=== PATIENT | male | born 1995 | race Caucasian/White ===

== ENCOUNTER 2019-02-07 23:08 | Inpatient (IN) | payer OTHER ==
[~2019-02-07] VITALS: Ht 177.8 cm; Wt 104.1 kg
[2019-02-07] MEDS ORDERED: PLEASE ENTER ALLERGIES MC SCH (23:45)
[2019-02-08] MEDS ORDERED: VANCOMYCIN PER PHARMACY MC ONE
[2019-02-08] MEDS ORDERED: METRONIDAZOLE PMX 500MG/100ML 100 ML IV ONE
[2019-02-08] MEDS ORDERED: SODIUM CHLORIDE 0.9% 1,000ML IVBOLUS ONE
[2019-02-08] MEDS ORDERED: CIPROFLOXACIN/PMX 400MG/200ML 200 ML IV ONE
[2019-02-08 00:03] LABS: BASOPHILS # (AUTO) 0.01 x10^3/uL (0-0.1); BASOPHILS % (AUTO) 0 % (0-1); EOSINOPHILS # (AUTO) 0.05 x10^3/uL (0-0.4); EOSINOPHILS % (AUTO) 1 % (1-7); LYMPHOCYTES # (AUTO) 1.17 x10^3/uL (1-3.4); LYMPHOCYTES % (AUTO) 17 % (22-44); MD NO; MEAN CORPUSCULAR HEMOGLOBIN 31.7 pg (27.5-34.5); MEAN CORPUSCULAR VOLUME 96.1 fL (81-97); MEAN PLATELET VOLUME 7.4 fL (7.4-10.4); MONOCYTES # (AUTO) 0.39 x10^3/uL (0.2-0.8); MONOCYTES % (AUTO) 6 % (2-9); NEUTROPHILS # (AUTO) 5.47 x10^3/uL (1.8-6.8); NEUTROPHILS % (AUTO) 77 % (42-75); PLATELET COUNT 119 x10^3/uL (130-400); RED BLOOD COUNT 4.86 x10^6/uL (4.38-5.82); RED CELL DISTRIBUTION WIDTH 15.8 % (9.4-14.8)
[2019-02-08 00:17] LABS: ANION GAP 11 mmol/L (5-15); CALCIUM 7.2 mg/dL (8.5-10.1); CHLORIDE 110 mmol/L (98-107); CREATININE 3.39 mg/dL (0.7-1.3); INTERNATIONAL NORMALIZED RATIO 1.26 (0.93-1.1); PROTHROMBIN TIME 13.1 Seconds (9.6-11.5)
[2019-02-08 00:21] LABS: ALKALINE PHOSPHATASE 88 U/L (45-117); TOTAL PROTEIN 6.5 g/dL (6.4-8.2)
[2019-02-08 00:26] LABS: ALANINE AMINOTRANSFERASE 2137 U/L (12-78)
[2019-02-08] MEDS ORDERED: CIPROFLOXACIN/PMX 400MG/200ML 200 ML ONE (00:34)
--- NOTE | 2019-02-08 00:54 | NUR ---
PT PRESENTED TO [facility] WITH C/O VOMITTING, DIARRHEA, GENERALIZED BODY ACHES, COUGH X 24 HOURS. PT BOUGHT MARIJUANA LAST NIGHT AND SMOKED IT AND IMMEDIATEDLY FELT WORSE. PT WAS GIVEN NARCAN AT [facility] DUE TO PINPOINT PUPILS AND ABNORMAL VITALS. PT RESPONDED TO [facility] WITH DILATION OF PUPILS AND INCREASED BP AND RESPONSIVENESS. PT DENIES ANY OPOID USE. DIAGNOSED AT [facility] WITH HYPOTENSION (LOWEST BP AT [facility] WAS NOTED TO BE 74/45), HYPERKALEMIA (7.1), LACTIC ACIDOSIS (6.8), RENAL INSUFFICIENCY, HYPOXEMIA (LOWEST READING NOTED TO BE 75% ON RA AT [facility]), ELEVATED LIVER ENZYMES, N/V/D. PT WAS TREATED AT [facility] WITH 2L NS BOLUS, NARCAN 1MG X 2 INJECTIONS, DEXTROSE, INSULIN, CA GLUCONATE 1000MG.
[2019-02-08] MEDS ORDERED: SODIUM CHLORIDE 0.9% 1,000 ML IV ONE (00:59)
[2019-02-08 01:00] LABS: BILIRUBIN, DIRECT 0.4 mg/dL (0.1-0.2)
[2019-02-08] MEDS ORDERED: ONDANSETRON 2MG/ML, 2ML IVPush PRN ×2 (01:00→03:30)
[2019-02-08] MEDS ORDERED: VANCOMYCIN 1,800 MG in SODIUM CHLORIDE 0.9% 250 ML IV ONE (01:00)
[2019-02-08 01:03] LABS: SALICYLATE LEVEL < 1.7 mg/dL (2.8-20.0)
[2019-02-08 01:10] LABS: BILIRUBIN,INDIRECT 0.6 mg/dL (0.0-2.0)
[2019-02-08 01:11] LABS: TOTAL PROTEIN 6.5 g/dL (6.4-8.2)
[2019-02-08] MEDS ORDERED: Zyprexa (01:24)
[2019-02-08] MEDS ORDERED: paxil ×2 (01:25→01:26)
[2019-02-08] MEDS ORDERED: zyprexa (01:26)
[2019-02-08] MEDS ORDERED: ONDA4TAB7 PO (01:26)
[2019-02-08] MEDS ORDERED: FAMO-79 PO ×2 (01:27→03:42)
[2019-02-08] MEDS ORDERED: LACTATED RINGERS 1,000 ML IVBOLUS ONE (01:30)
--- NOTE | 2019-02-08 01:38 | NUR ---
BREAK RN: MAINTINENCE IVF STARTED AT 125ML/HR. CALL LIGHT IN REACH, NEEDS ADDRESSED.
--- NOTE | 2019-02-08 01:56 | NUR ---
REPORT GIVEN TO LEVI HERNANDEZ. MARY TO ASSUME CARE AT THIS TIME.
--- NOTE | 2019-02-08 02:07 | NUR ---
report to pamela rn
[2019-02-08 03:28] VITALS: BP 101/66
[2019-02-08] MEDS ORDERED: PROMETHAZINE 25 MG/ML, 1ML IM PRN (03:30)
[2019-02-08] MEDS ORDERED: morphine SULFATE 10 MG/ML, 1ML IVPush PRN (03:30)
[2019-02-08] MEDS ORDERED: PARO30TA45 PO (03:40)
[2019-02-08] MEDS ORDERED: OLAN2.5T3 PO (03:41)
[2019-02-08 04:09] LABS: ALBUMIN 3.1 g/dL (3.4-5.0); ANION GAP 9 mmol/L (5-15); CALCIUM 7.3 mg/dL (8.5-10.1); CHLORIDE 111 mmol/L (98-107)
[2019-02-08 04:15] LABS: ALKALINE PHOSPHATASE 82 U/L (45-117); CREATININE 2.74 mg/dL (0.7-1.3); TOTAL PROTEIN 6.5 g/dL (6.4-8.2)
[2019-02-08 04:19] LABS: BASOPHILS # (AUTO) 0.02 x10^3/uL (0-0.1); BASOPHILS % (AUTO) 0 % (0-1); EOSINOPHILS % (AUTO) 0 % (1-7); LYMPHOCYTES # (AUTO) 1.46 x10^3/uL (1-3.4); LYMPHOCYTES % (AUTO) 18 % (22-44); MD NO; MEAN CORPUSCULAR HEMOGLOBIN 31.5 pg (27.5-34.5); MEAN CORPUSCULAR HGB CONC 32.9 g/dL (33.2-36.2); MEAN CORPUSCULAR VOLUME 95.8 fL (81-97); MEAN PLATELET VOLUME 7.7 fL (7.4-10.4); MONOCYTES # (AUTO) 0.43 x10^3/uL (0.2-0.8); MONOCYTES % (AUTO) 5 % (2-9); NEUTROPHILS # (AUTO) 6.07 x10^3/uL (1.8-6.8); NEUTROPHILS % (AUTO) 76 % (42-75); PLATELET COUNT 129 x10^3/uL (130-400); RED BLOOD COUNT 4.74 x10^6/uL (4.38-5.82); RED CELL DISTRIBUTION WIDTH 15.6 % (9.4-14.8)
[2019-02-08 04:24] LABS: ALANINE AMINOTRANSFERASE 2784 U/L (12-78)
[2019-02-08 04:37] LABS: CREATINE KINASE, TOTAL 3606 U/L (39-308)
[2019-02-08 04:43] LABS: MICROSCOPIC INDICATED
[2019-02-08 04:50] LABS: AMPHETAMINE SCREEN, URINE Negative (Negative); BARBITURATE SCREEN, URINE Negative (Negative); BENZODIAZEPINE SCREEN, URINE Positive (Negative); CANNABINOID SCREEN, URINE Negative (Negative); CHLORIDE,URINE RANDOM 78 mmol/L; COCAINE SCREEN, URINE Negative (Negative); METHADONE SCREEN, URINE Negative (Negative); OPIATE SCREEN, URINE Positive (Negative); POTASSIUM,URINE RANDOM 73 mmol/L; SODIUM,URINE RANDOM 41 mmol/L
[2019-02-08 04:54] LABS: CULTURE INDICATED? NO
[2019-02-08] MEDS ORDERED: ACETYLCYSTEINE 15,000 MG in DEXTROSE 5% 200 ML IV ONE (05:00)
[2019-02-08] MEDS: SODIUM CHLORIDE 0.9% 1,000 ML IV SCH ×4 (05:04→20:45)
[2019-02-08] MEDS: METRONIDAZOLE PMX 500MG/100ML 100 ML IV SCH ×2 (05:04→12:03)
[2019-02-08] MEDS ORDERED: CALCIUM GLUCONATE 9.2 MEQ in SODIUM CHLORIDE 0.9% 100 ML IV ONE (06:00)
[2019-02-08] MEDS ORDERED: ACETYLCYSTEINE 5,000 MG in DEXTROSE 5% 500 ML IV ONE (06:00)
[2019-02-08] MEDS ORDERED: AZTREONAM 2 GM in DEXTROSE 5% 100 ML IV SCH (09:00)
[2019-02-08 09:26] LABS: OCCULT BLOOD NEGATIVE (NEGATIVE)
[2019-02-08 09:48] LABS: STOOL FOR LEUKOCYTES NONE SEEN (NEGATIVE)
[2019-02-08] MEDS ORDERED: ACETYLCYSTEINE 10,000 MG in DEXTROSE 5% 1,000 ML IV ONE (10:00)
[2019-02-08 10:38] VITALS: BP 129/89
[2019-02-08 13:03] LABS: CREATINE KINASE, TOTAL 6416 U/L (39-308)
[2019-02-08] MEDS: ACETYLCYSTEINE 10,000 MG in DEXTROSE 5% 1,000 ML IV SCH (13:48)
[2019-02-08 15:20] LABS: ALBUMIN 2.7 g/dL (3.4-5.0); ANION GAP 8 mmol/L (5-15); CALCIUM 7.9 mg/dL (8.5-10.1); CHLORIDE 108 mmol/L (98-107)
[2019-02-08 15:24] LABS: ALKALINE PHOSPHATASE 68 U/L (45-117); BILIRUBIN,TOTAL 1.1 mg/dL (0.2-1.0); TOTAL PROTEIN 6.1 g/dL (6.4-8.2)
[2019-02-08 15:30] LABS: ALANINE AMINOTRANSFERASE 2512 U/L (12-78)
[2019-02-08 15:45] LABS: CREATINE KINASE, TOTAL 6215 U/L (39-308)
[2019-02-08] MEDS: metroNIDAZOLE 500 MG TABLET PO SCH ×2 (17:07→22:58)
[2019-02-08 17:46] VITALS: BP 136/85
[2019-02-08 20:28] VITALS: BP 126/86
[2019-02-08] MEDS: AZTREONAM 2 GM in DEXTROSE 5% 100 ML IV SCH (20:45)
[2019-02-09] MEDS ORDERED: CIPROFLOXACIN/PMX 400MG/200ML 200 ML IV SCH
[2019-02-09 00:53] VITALS: BP_SYST 139; BP_SYST 142; BP_DIAS 92; BP_DIAS 96
[2019-02-09] MEDS: SODIUM CHLORIDE 0.9% 1,000 ML IV SCH ×4 (01:00→21:48)
[2019-02-09] MEDS: AZTREONAM 2 GM in DEXTROSE 5% 100 ML IV SCH ×3 (05:10→21:04)
[2019-02-09 05:22] LABS: BASOPHILS # (AUTO) 0.02 x10^3/uL (0-0.1); BASOPHILS % (AUTO) 0 % (0-1); EOSINOPHILS # (AUTO) 0.04 x10^3/uL (0-0.4); EOSINOPHILS % (AUTO) 1 % (1-7); LYMPHOCYTES # (AUTO) 0.99 x10^3/uL (1-3.4); LYMPHOCYTES % (AUTO) 21 % (22-44); MD NO; MEAN CORPUSCULAR HEMOGLOBIN 31.5 pg (27.5-34.5); MEAN CORPUSCULAR HGB CONC 33.1 g/dL (33.2-36.2); MEAN CORPUSCULAR VOLUME 95.2 fL (81-97); MEAN PLATELET VOLUME 7.5 fL (7.4-10.4); MONOCYTES # (AUTO) 0.21 x10^3/uL (0.2-0.8); MONOCYTES % (AUTO) 5 % (2-9); NEUTROPHILS # (AUTO) 3.47 x10^3/uL (1.8-6.8); NEUTROPHILS % (AUTO) 73 % (42-75); PLATELET COUNT 103 x10^3/uL (130-400); RED BLOOD COUNT 4.62 x10^6/uL (4.38-5.82)
[2019-02-09 05:26] LABS: INTERNATIONAL NORMALIZED RATIO 1.24 (0.93-1.1); PROTHROMBIN TIME 12.9 Seconds (9.6-11.5)
[2019-02-09 05:29] LABS: ALBUMIN 2.6 g/dL (3.4-5.0); ANION GAP 5 mmol/L (5-15); CALCIUM 8.4 mg/dL (8.5-10.1); CHLORIDE 110 mmol/L (98-107)
[2019-02-09] MEDS: ACETYLCYSTEINE 10,000 MG in DEXTROSE 5% 1,000 ML IV SCH ×2 (05:46→21:48)
[2019-02-09 05:47] LABS: ALANINE AMINOTRANSFERASE 2286 U/L (12-78); ALKALINE PHOSPHATASE 76 U/L (45-117); BILIRUBIN,TOTAL 0.9 mg/dL (0.2-1.0); CREATININE 1.11 mg/dL (0.7-1.3); TOTAL PROTEIN 6.1 g/dL (6.4-8.2)
[2019-02-09 05:59] LABS: CREATINE KINASE, TOTAL 4277 U/L (39-308)
[2019-02-09 09:06] VITALS: BP 144/98
[2019-02-09] MEDS: metroNIDAZOLE 500 MG TABLET PO SCH ×3 (09:42→21:03)
[2019-02-09] MEDS ORDERED: maalox/diphenh/lido/sucralfate 5 ML PO PRN (11:30)
[2019-02-09] MEDS: GUAIFENESIN 200 MG TABLET PO SCH ×3 (12:35→21:03)
[2019-02-09 13:58] VITALS: BP 137/93
[2019-02-09 20:07] VITALS: BP 130/89
[2019-02-10 01:54] VITALS: BP 132/87
[2019-02-10] MEDS: GUAIFENESIN 200 MG TABLET PO SCH ×4 (05:08→20:52)
[2019-02-10] MEDS: AZTREONAM 2 GM in DEXTROSE 5% 100 ML IV SCH ×3 (05:08→20:52)
[2019-02-10] MEDS: SODIUM CHLORIDE 0.9% 1,000 ML IV SCH ×4 (05:09→23:24)
[2019-02-10 07:00] VITALS: BP 135/84
[2019-02-10 07:42] LABS: INTERNATIONAL NORMALIZED RATIO 1.22 (0.93-1.1); PROTHROMBIN TIME 12.7 Seconds (9.6-11.5)
[2019-02-10 07:48] LABS: CHLORIDE 107 mmol/L (98-107)
[2019-02-10 07:54] LABS: BASOPHILS # (AUTO) 0.03 x10^3/uL (0-0.1); BASOPHILS % (AUTO) 1 % (0-1); EOSINOPHILS # (AUTO) 0.05 x10^3/uL (0-0.4); EOSINOPHILS % (AUTO) 1 % (1-7); LYMPHOCYTES # (AUTO) 1.09 x10^3/uL (1-3.4); LYMPHOCYTES % (AUTO) 23 % (22-44); MD NO; MEAN CORPUSCULAR HGB CONC 34.8 g/dL (33.2-36.2); MEAN CORPUSCULAR VOLUME 94.6 fL (81-97); MEAN PLATELET VOLUME 7.1 fL (7.4-10.4); MONOCYTES # (AUTO) 0.32 x10^3/uL (0.2-0.8); MONOCYTES % (AUTO) 7 % (2-9); NEUTROPHILS # (AUTO) 3.32 x10^3/uL (1.8-6.8); NEUTROPHILS % (AUTO) 69 % (42-75); PLATELET COUNT 135 x10^3/uL (130-400); RED BLOOD COUNT 5.15 x10^6/uL (4.38-5.82); RED CELL DISTRIBUTION WIDTH 14.4 % (9.4-14.8)
[2019-02-10 08:08] LABS: ALKALINE PHOSPHATASE 97 U/L (45-117); ANION GAP 8 mmol/L (5-15); BILIRUBIN,TOTAL 1.1 mg/dL (0.2-1.0); CREATININE 0.78 mg/dL (0.7-1.3); TOTAL PROTEIN 7.3 g/dL (6.4-8.2); TROPONIN I 0.097 ng/mL (0.000-0.045)
[2019-02-10 08:10] LABS: ALANINE AMINOTRANSFERASE 1634 U/L (12-78); CREATINE KINASE, TOTAL 1842 U/L (39-308)
[2019-02-10] MEDS: metroNIDAZOLE 500 MG TABLET PO SCH ×3 (09:58→20:52)
[2019-02-10] MEDS: NYSTATIN 500,000 UNITS/5 ML UDC PO SCH ×3 (11:01→20:52)
[2019-02-10 13:08] VITALS: BP 123/83
[2019-02-10] MEDS: ACETYLCYSTEINE 10,000 MG in DEXTROSE 5% 1,000 ML IV SCH (13:46)
[2019-02-10 20:26] VITALS: BP 139/82
[2019-02-10] MEDS: FAMOTIDINE 20 MG TABLET PO SCH (20:53)
[2019-02-10] MEDS: PAROXETINE 10 MG TABLET PO SCH (20:53)
[2019-02-10] MEDS: OLANZAPINE 2.5 MG TABLET PO SCH (20:53)
[2019-02-11 02:57] VITALS: BP 124/77
[2019-02-11] MEDS: NYSTATIN 500,000 UNITS/5 ML UDC PO SCH ×4 (05:12→20:49)
[2019-02-11] MEDS: SODIUM CHLORIDE 0.9% 1,000 ML IV SCH (05:12)
[2019-02-11] MEDS: GUAIFENESIN 200 MG TABLET PO SCH ×4 (05:12→20:50)
[2019-02-11] MEDS: AZTREONAM 2 GM in DEXTROSE 5% 100 ML IV SCH (05:12)
[2019-02-11 05:49] LABS: INTERNATIONAL NORMALIZED RATIO 1.22 (0.93-1.1); PROTHROMBIN TIME 12.7 Seconds (9.6-11.5)
[2019-02-11 05:53] LABS: ALBUMIN 2.7 g/dL (3.4-5.0); ANION GAP 8 mmol/L (5-15); CALCIUM 8.2 mg/dL (8.5-10.1); CHLORIDE 108 mmol/L (98-107)
[2019-02-11 06:02] LABS: ALANINE AMINOTRANSFERASE 1016 U/L (12-78); ALKALINE PHOSPHATASE 93 U/L (45-117); BILIRUBIN,TOTAL 0.6 mg/dL (0.2-1.0); CREATINE KINASE, TOTAL 821 U/L (39-308); CREATININE 0.83 mg/dL (0.7-1.3); TOTAL PROTEIN 6.5 g/dL (6.4-8.2)
[2019-02-11 07:59] VITALS: BP 129/81
[2019-02-11] MEDS: POTASSIUM CHLORIDE 20 MEQ TAB.ER.PRT PO SCH (08:45)
[2019-02-11] MEDS: FAMOTIDINE 20 MG TABLET PO SCH ×2 (08:45→20:50)
[2019-02-11] MEDS: LACTATED RINGERS 1,000 ML IV SCH ×3 (08:46→20:50)
[2019-02-11] MEDS: ACETYLCYSTEINE 10,000 MG in DEXTROSE 5% 1,000 ML IV SCH (14:02)
[2019-02-11 14:17] LABS: ANA SCREEN NEGATIVE (Negative)
[2019-02-11 14:34] VITALS: BP 135/83
[2019-02-11] MEDS ORDERED: TRAZODONE 50MG TABLET PO PRN (16:00)
[2019-02-11 19:48] VITALS: BP 148/93
[2019-02-11] MEDS: OLANZAPINE 2.5 MG TABLET PO SCH (20:49)
[2019-02-11] MEDS: AMOXICILLIN/CLAV 875-125MG TABLET PO SCH (20:50)
[2019-02-11] MEDS: PAROXETINE 10 MG TABLET PO SCH (20:50)
[2019-02-12 00:51] VITALS: BP 143/88
[2019-02-12] MEDS: LACTATED RINGERS 1,000 ML IV SCH (03:56)
[2019-02-12] MEDS: NYSTATIN 500,000 UNITS/5 ML UDC PO SCH ×3 (05:19→16:58)
[2019-02-12] MEDS: GUAIFENESIN 200 MG TABLET PO SCH ×3 (05:20→16:58)
[2019-02-12 05:39] LABS: INTERNATIONAL NORMALIZED RATIO 1.08 (0.93-1.1); PROTHROMBIN TIME 11.3 Seconds (9.6-11.5)
[2019-02-12 05:44] LABS: ALBUMIN 2.6 g/dL (3.4-5.0); ANION GAP 8 mmol/L (5-15); CALCIUM 8.5 mg/dL (8.5-10.1); CHLORIDE 112 mmol/L (98-107)
[2019-02-12 05:50] LABS: ALANINE AMINOTRANSFERASE 656 U/L (12-78); ALKALINE PHOSPHATASE 76 U/L (45-117); BILIRUBIN,TOTAL 1.3 mg/dL (0.2-1.0); CREATINE KINASE, TOTAL 332 U/L (39-308); CREATININE 0.73 mg/dL (0.7-1.3); TOTAL PROTEIN 6.2 g/dL (6.4-8.2)
[2019-02-12 07:55] VITALS: BP 154/99
[2019-02-12] MEDS ORDERED: LACTATED RINGERS 1,000 ML IV SCH (08:00)
[2019-02-12] MEDS ORDERED: GUAI200T37 PO (11:28)
[2019-02-12] MEDS ORDERED: AMOX1TAB12 PO (11:28)
[2019-02-12] MEDS ORDERED: POTA20TA6 PO (11:28)
[2019-02-12] MEDS: AMOXICILLIN/CLAV 875-125MG TABLET PO SCH (13:03)
[2019-02-12] MEDS: FAMOTIDINE 20 MG TABLET PO SCH (13:03)
[2019-02-12] MEDS: POTASSIUM CHLORIDE 20 MEQ TAB.ER.PRT PO SCH (13:05)
[2019-02-12 14:32] VITALS: BP 138/92
[2019-02-12] MEDS ORDERED: NYST1000 PO (16:02)
== END 2019-02-12 17:26 | disposition home or self-care (01) | DRG 871 ==
LOC: ED 02-08 00:34 → EDIP 02-08 00:59 → 4WST 02-08 01:55
PROVIDERS: ADMIT Family Medicine; ATTEND Internal Medicine Infectious Disease
PROC: 0T9B70Z Drainage of Bladder with Drainage Device, Via Natural or Artificial Opening (ICD-10-PCS; principal; 2019-02-08)
DX: A41.9 Sepsis, unspecified organism (principal); J96.00 Acute respiratory failure, unspecified whether with hypoxia or hypercapnia; K72.00 Acute and subacute hepatic failure without coma; R65.21 Severe sepsis with septic shock; B17.9 Acute viral hepatitis, unspecified; B37.0 Candidal stomatitis; D68.9 Coagulation defect, unspecified; M62.82 Rhabdomyolysis; N17.9 Acute kidney failure, unspecified; Z88.5 Allergy status to narcotic agent; Z88.8 Allergy status to other drugs, medicaments and biological substances; D69.6 Thrombocytopenia, unspecified; E66.9 Obesity, unspecified; Z71.3 Dietary counseling and surveillance; E83.51 Hypocalcemia; E87.5 Hyperkalemia; E87.6 Hypokalemia; F12.10 Cannabis abuse, uncomplicated; F41.1 Generalized anxiety disorder; I10 Essential (primary) hypertension; I44.1 Atrioventricular block, second degree; K52.9 Noninfective gastroenteritis and colitis, unspecified; K75.89 Other specified inflammatory liver diseases; Z80.3 Family history of malignant neoplasm of breast; Z88.1 Allergy status to other antibiotic agents
CPT/HCPCS: 36415; 80053; 82550; 83690; 84484; 85025; 85610; 86038; 87427; 93005; 99291; G0378; J0132; J0610; J0744; J3370; J7060; J7070; J7030; J7050; J7120